=== PATIENT | male | born 1985 | race Caucasian/White ===

== ENCOUNTER → 2020-01-12 10:25 | Outpatient (BNVA) | payer SELFPAY | PROVIDERS: Visit Provider Nurse Practitioner Family | DX: Z11.59 Encounter for screening for other viral diseases (principal); Z20.828 Contact with and (suspected) exposure to other viral communicable diseases | CPT/HCPCS: 87635 ==

== ENCOUNTER 2020-06-17 10:14 | Outpatient (CLI) | payer BC, SELFPAY ==
--- NOTE | 2020-06-17 10:32 | CT_ITS ---
WS: [id number] CT ABDOMEN AND PELVIS WITH CONTRAST HISTORY: LLQ PAIN TECHNIQUE: Imaging performed of the abdomen and pelvis with IV contrast. Single phase imaging of the abdomen. Coronal and sagittal reformats are submitted. All CT scans at [facility] use at least one of these dose optimization techniques: automated exposure control; mA and/or kV adjustment per patient size (includes targeted exams where dose is matched to clinical indication); or iterativ e reconstruction. IV CONTRAST: Omnipaque 300; 95 mL IV. Oral contrast: No DLP: 1096.57 mGycm COMPARISON: 09/27/2013 Lower thorax: Lung bases are clear. Heart is normal size. No hiatal hernia. Liver/biliary system: Normal size with no intrahepatic dilatation. Gallbladder: Normal. No gallstones or wall thickening. No pericholecystic fluid. Pancreas: Normal. Spleen: Normal. Adrenal glands: Normal. Right kidney: Normal. Left kidney: Normal. Aorta: Normal. Lymphadenopathy: None. Free fluid: There is a small amount of free fluid in the pelvis which is abnormal in a male patient. GI tract: Increase fluid in the small bowel. Mild collapse of the distal colon. No significant fecal retention in the colon. There is linear calcification in the RIGHT lower quadrant which extends to th e cecum. Favor this is probably an appendix with appendicoliths. Appendix with no calcification was n oted on a prior study of 09/27/2013 in a similar location. No acute inflammatory changes. Abdominal wall: Unremarkable abdominal wall. No hernia. Pelvis: Small amount of free fluid in the pelvis. Urinary bladder is nondistended. Small bilateral hy droceles. Bones: Unremarkable. CT/CT abdomen pelvis w con* [id number] IMPRESSION: 1. Small amount of free fluid in the pelvis is abnormal in a male patient. Akila ology of this fluid is not certain. 2. Mild fluid distention of small bowel but no obstructive pattern. May be due to enteritis. 3. Linear calcification the RIGHT lower quadrant is probably the appendix with extensive appendicoliths. No adjacent inflammation.
[2020-06-17] MEDS: iohexol 300 mg/mL 100 mL Btl IV (11:41)
== END 2020-06-17 10:15 | disposition home or self-care (01) ==
PROVIDERS: Visit Provider Nurse Practitioner Family
DX: R10.32 Left lower quadrant pain (principal)
CPT/HCPCS: 74177; Q9967

== ENCOUNTER 2020-06-18 05:49 | Observation (INO) | payer BC, SELFPAY ==
[2020-06-18] VITALS (16 sets, daily range): BP systolic 106–150; BP diastolic 65–87; PULSE 36–67; RESP 11–18; TEMP 36.2–36.8; O2SAT 95–100; BMI 23.6
--- NOTE | 2020-06-18 06:05 | W.ED.ABDPA2 ---
HPI - Abdominal Pain General: Chief Complaint: Abdominal Pain Stated Complaint: ab pain, constipation Time Seen by Provider: 06/18/20 05:52 History of Present Illness: HPI narrative: 34-year-old male presents emergency room complaining of abdominal pain the lower abdomen began primarily left lower quadrant has kind of migrated over to the right lower quadrant. It began approximately 4 days ago has been getting progressively worse. He has had problems with constipation in the past. He denies any previous abdominal surgeries denies any dysuria urgency or frequency. Denies any medication melena hematemesis or coffee-ground emesis. MD elicited complaint: abdominal pain Onset (ago): day(s) (4) Pain Consistency: constant Location: LLQ Severity: moderate Quality: cramping Migration to: RLQ Exacerbating factors: movement Relieving factors: rest Associated Symptoms: Reports anorexia, bloating and poor appetite; Denies belching, change in bowel habits, chills, coffee ground emesis, constipation, GI cramping, diarrhea, dyspepsia, dysuria, excessive flatus, fever(s), heartburn, hematochezia, hematuria, hematemesis, fecal incontinence, loose stools, melena, nausea, syncope and vomiting Review of Systems Const: Denies: fever(s) ENMT: Denies: throat pain, ear or mastoid pain, nasal discharge or nasal congestion Card: Denies: syncope Resp: Denies: dyspnea, productive cough or non-productive cough GI: Reports: bloating; Denies: nausea, vomiting, hematemesis, coffee ground emesis, heartburn, diarrhea, constipation, GI cramping, belching, excessive flatus, fecal incontinence, change in bowel habits, hematochezia or melena : Denies: dysuria or hematuria Skin/Breast: Denies: rash or pruritus PFS ED PFSH: Surgical History (Updated 06/18/20 @ 14:47 by Rancho Gray MD) S/P laparoscopic appendectomy (06/18/20) Family History Grandfather Hypertension Father Diabetes Denies family history of Dementia Social History Smoking and tobacco status: current every day smoker cigarettes Packs smoked per day: 1 Years cigarettes smoked: 1 Alcohol intake: never Current gender identity: Male Physical Exam Const: COMMON NORMALS: no acute distress GENERAL APPEARANCE: cooperative and comfortable ORIENTATION/CONSCIOUSNESS: Yes awake, Yes oriented to person, Yes oriented to place and Yes oriented to time HENMT: COMMON NORMALS: normocephalic, atraumatic and hearing grossly normal bilaterally HEAD & SCALP: normocephalic and atraumatic Neck/C-Spine: COMMON NORMALS: no JVD Resp: COMMON NORMALS: normal respiratory effort, No retractions, No use of accessory muscles and clear to auscultation bilaterally AUSCULTATION: clear to auscultation bilaterally Cardio: COMMON NORMALS: no JVD, regular rate, regular rhythm and No murmurs present (Cardio) RATE: regular rate RHYTHM: regular rhythm GI: COMMON NORMALS: No hepatosplenomegaly present AUSCULTATION: Yes normoactive bowel sounds PALPATION: Yes Tenderness to palpation present (GI) Details: LLQ and RLQ, No Guarding due to palpation present (GI) and Yes No hepatosplenomegaly present Extremity: COMMON NORMALS: normal to inspection, capillary refill normal, no clubbing, cyanosis or edema, no calf tenderness and no pedal edema Neuro: SENSORIUM/ORIENTATION: Yes oriented to person, Yes oriented to place and Yes oriented to time Skin: COMMON NORMALS: no rashes or lesions noted GENERAL SKIN EXAM: no rashes or lesions noted Course Vital Signs: Vital signs: Vital Signs Temperature 98.1 F 06/18/20 18:50 Pulse Rate 67 06/18/20 18:50 Respiratory Rate 18 06/18/20 18:50 Blood Pressure 125/78 06/18/20 18:50 Pulse Oximetry 98 06/18/20 18:50 MDM - Abdominal Pain MDM Narrative: Medical decision making narrative: Right lower quadrant pain with CT suspicious for appendicitis however patient has small amount of intraperitoneal fat and is difficult to be certain. We will go ahead and admit discussed with Dr. Gray he will evaluate patient. Lab Data: Labs: Lab Results 06/18/20 06/18/20 06/18/20 Range/Units 06:15 06:15 06:48 WBC 11.4 H (4.0-10.0) 10^3/ uL RBC 5.02 (4.1-5.3) 10^6/u L Hgb 15.0 (11.7-16.6) g/dL Hct 44.5 (42.0-52.0) % MCV 88.6 (80-94) fL MCH 29.9 (28.0-34.0) pg MCHC 33.7 (30.0-36.0) g/dL RDW 12.8 (12.1-15.1) % Plt Count 316 (130-400) 10^3/c mm MPV 10.1 (7.4-10.4) fL Neut % (Auto) 69.3 % Lymph % (Auto) 21.2 % [place] % (Auto) 8.0 % Eos % (Auto) 0.9 % Baso % (Auto) 0.3 % Neut # (Auto) 7.93 H (1.8-7.7) 10^3/u L Lymph # (Auto) 2.4 (0.8-4.8) 10^3/u L [place] # (Auto) 0.9 (0.2-0.9) 10^3/u L Eos # (Auto) 0.1 (0.0-0.8) 10^3/u L Baso # (Auto) 0.0 (0.0-0.1) 10^3/u L Nucleated RBC % (a uto) 0 % Nucleated RBCs # 0.0 /100WBC Sodium 138 (136-145) mmol/L Potassium 3.8 (3.5-5.1) mmol/L Chloride 100 (98-107) mmol/L Carbon Dioxide 30 H (22-29) mmol/L Anion Gap 11.8 (5-19) BUN 6 (6-20) mg/dL Creatinine 0.9 (0.7-1.2) mg/dL GFR Calculation 97.2 (90-130) mL/min Glucose 93 (65-115) mg/dL Calculated Osmolal ity 283 L (285-295) mOsm/k g Calcium 8.9 (8.5-10.5) mg/dL Total Bilirubin 0.6 (0.15-1.2) mg/dL AST 12 (0-40) U/L ALT 17 (0-41) U/L Alkaline Phosphata se 53 (40-130) IU/L Total Protein 6.2 L (6.6-8.7) g/dL Albumin 4.3 (3.5-5.2) g/dL Globulin 1.9 (1.3-4.6) g/dL Lipase 13 (13-60) U/L Urine Color Yellow (Yellow) Urine Appearance Clear (CLEAR) Urine pH 6.5 (5-7) Ur Specific Gravit y 1.020 (1.005-1.030) Urine Protein Neg (Negative) Urine Glucose (UA) Norm (Normal) Urine Ketones Negative (Negative) Urine Blood Neg (Negative) Urine Nitrate Negative (Negative) Urine Bilirubin Neg (Negative) Urine Urobilinogen Norm (Negative) mg/dL Ur Leukocyte [place]olande ase Negative (Negative) Discharge Plan Discharge Patient Disposition: Admitted As Inpatient Admit Provider: Rancho Gray Clinical Impression: Acute appendicitis Condition: Stable Discharge Diet: Advance as tolerated Coding Level of Care Code ED Scientific Informatics Project Leader for [facility] Exam Comprehensive
--- NOTE | 2020-06-18 06:32 | CT_ITS ---
WS: [id number] CT ABDOMEN AND PELVIS WITH CONTRAST HISTORY: abd pain TECHNIQUE: Imaging performed of the abdomen and pelvis with IV contrast. Single phase imaging of the abdomen. Coronal and sagittal reformats are submitted. All CT scans at [facility] use at least one of these dose optimization techniques: automated exposure control; mA and/or kV adjustment per patient size (includes targeted exams where dose is matched to clinical indication); or iterativ e reconstruction. IV CONTRAST: Omnipaque 300; 95 mL IV. Oral contrast: No DLP: 1007.23 mGy.cm COMPARISON: 06/17/2020 and 09/27/2013 Lower thorax: Lung bases are clear. Heart is normal size. No hiatal hernia. Liver/biliary system: Normal size with no intrahepatic dilatation. Gallbladder: Normal. No gallstones or wall thickening. No pericholecystic fluid. Pancreas: Normal. Spleen: Normal. Adrenal glands: Normal. Right kidney: Normal. Left kidney: Normal. Aorta: Normal. Lymphadenopathy: None. Free fluid: Moderate amount of free fluid in the pelvis. This fluid has increased in amount since the study the prior day. This is an abnormal finding. GI tract: Mild fluid distention of the small bowel. Again noted are the high density foci in the RIGH T lower quadrant associated with the cecum or appendix. There is a small amount of increased fluid no w at the site. These may be phleboliths or medicinal material. Appendix has increased in diameter, no w measuring 8 mm. Overall the configuration of these densities has changed. They are less linear on t mary's study. Abdominal wall: Unremarkable abdominal wall. No hernia. Pelvis: Moderate amount of free fluid. There is also fluid surrounding the testicles. Bones: Unremarkable. CT/CT abdomen pelvis w con* [id number] IMPRESSION: 1. Increasing amount of free fluid in the pelvis is normal. Favor this is rela toshia to acute appendicitis as there is increasing fluid and distention of the ap pendix. There is continued small bowel fluid distention. 2. Numerous abnormal densities in the RIGHT lower quadrant. These may be appen dicoliths associated with appendicitis or medicinal material. These densities h ave changed in configuration since the prior study therefore these do appear mo bile. . Notified Nakul Urena DO at 06/18/2020 8:12 AM.
[2020-06-18] MEDS: ondansetron 2 mg/ML SDV 2 mL 4 MG IVP (06:36)
[2020-06-18 06:43] LABS: Basophils % 0.3 %; Eosinophils # 0.1 10^3/uL (0.0-0.8); Eosinophils % 0.9 %; Hematocrit 44.5 % (42.0-52.0); Lymphocytes # 2.4 10^3/uL (0.8-4.8); Lymphocytes % 21.2 %; Mean Corpuscular HGB Conc 33.7 g/dL (30.0-36.0); Mean Corpuscular Hemoglobin 29.9 pg (28.0-34.0); Mean Corpuscular Volume 88.6 fL (80-94); Mean Platelet Volume 10.1 fL (7.4-10.4); Monocytes # 0.9 10^3/uL (0.2-0.9); Neutrophils # 7.93 10^3/uL (1.8-7.7); Neutrophils % 69.3 %; Nucleated Red Blood Cells % 0 %; Platelet Count 316 10^3/cmm (130-400); Red Blood Count 5.02 10^6/uL (4.1-5.3); Red Cell Distribution Width 12.8 % (12.1-15.1); White Blood Count 11.4 10^3/uL (4.0-10.0)
[2020-06-18 06:55] LABS: Alanine Aminotransferase 17 U/L (0-41); Albumin Level 4.3 g/dL (3.5-5.2); Alkaline Phosphatase 53 IU/L (40-130); Anion Gap 11.8 (5-19); Aspartate Amino Transferase 12 U/L (0-40); Blood Urea Nitrogen 6 mg/dL (6-20); Calcium 8.9 mg/dL (8.5-10.5); Carbon Dioxide 30 mmol/L (22-29); Chloride 100 mmol/L (98-107); Globulin 1.9 g/dL (1.3-4.6); Glomerular Filtration Rate 97.2 mL/min (90-130); Glucose 93 mg/dL (65-115); Lipase 13 U/L (13-60); Osmolality Calculated 283 mOsm/kg (285-295); Potassium 3.8 mmol/L (3.5-5.1); Sodium 138 mmol/L (136-145); Total Bilirubin 0.6 mg/dL (0.15-1.2); Total Protein 6.2 g/dL (6.6-8.7)
[2020-06-18 07:02] LABS: Add Urine Microscopic? NO; Charge for UA Resulting for Rev
[2020-06-18 07:05] LABS: Bilirubin Urine Neg (Negative); Blood Urine Neg (Negative); Glucose Urine UA Norm (Normal); Ketones Urine Negative (Negative); Leukocyte Esterase Urine Negative (Negative); Nitrate Urine Negative (Negative); Protein Urine Neg (Negative); Urine Appearance Clear (CLEAR); Urine Color Yellow (Yellow); Urobilinogen Urine Norm (Negative); pH Urine 6.5 (5-7)
[2020-06-18] MEDS: sodium chloride 0.9% 1,000 ML 999 ML IV ×2 (07:40→10:31)
[2020-06-18 09:18] LABS: Lactic Sepsis W/Reflex 1.4 mmol/L (0.5-2.2)
[2020-06-18] MEDS: morphine 4 mg/mL SDV 1 mL IVP (09:29)
--- NOTE | 2020-06-18 09:35 | PC.NURSE ---
Admitting nurse can not take report due to rounding at this time.
--- NOTE | 2020-06-18 12:01 | PC.NURSE ---
Patient to surgery at this time. Patient is A&Ox3. Respirations even and non-labored on room air.
--- NOTE | 2020-06-18 13:19 | PM.HP ---
Providers/Chief Complaint Admitting Physician: Rancho Gray MD Chief Complaint: ab pain, constipation History of Present Illness Ayo Antony is a 34 year old male who presented to the ER yesterday as well as today with complaints of abdominal pain over the last 4 to 5 days. Patient states that he has not had a bowel movement for 6 days. Patient denies any fevers but has some chills. No nausea, vomiting. Denies any diarrhea. He quit smoking about a week ago. He has no pertinent medical or surgical history. Review of Systems General: Reports: 10 or more systems reviewed and unremarkable except in HPI and below Medications/Allergies Home Medications Medication Instructions Recorded Confirmed Last Taken Type No Known Home Medications 01/12/20 06/18/20 Unknown History Allergies Allergy/AdvReac Type Severity Reaction Status Date / Time No Known Allergies Allergy Verified 01/12/20 10:03 PFSH Acute PFSH: Family History Grandfather Hypertension Father Diabetes Denies family history of Dementia Social History Smoking and tobacco status: current every day smoker cigarettes Packs smoked per day: 1 Years cigarettes smoked: 1 Alcohol intake: never Current gender identity: Male Vitals/I&O/Wt Last Vital Signs Temp 97.4 F L 06/18/20 12:41 Pulse 40 L 06/18/20 12:41 Resp 16 06/18/20 12:41 BP 111/74 06/18/20 12:41 Pulse Ox 99 06/18/20 12:41 06/17/20 06/18/20 06/18/20 22:59 06:59 14:59 Intake Total 1000 / 1000 Balance 1000 / 1000 Weight last 48 hrs Weight 160 lb Physical Exam Narrative: EXAM NARRATIVE: HEENT: Normocephalic Eye: Sclera /conjunctiva normal Respiratory and chest: Bilateral clear breath sounds on auscultation Cardiovascular: Normal S1 and S2 heart sounds Abdomen: Soft to palpation, tender right lower quadrant on palpation Neurological: Oriented to place person and time Skin: Intact, no lesions appreciated on gross exam Data : 06/18/20 06:15 06/18/20 06:15 A&P Assessment and plan (1) Right lower quadrant pain: 34-year-old male who is been dealing with worsening right lower quadrant pain, chills for the last 5 days. Patient was seen in the emergency room yesterday and a CT scan yesterday had shown minimal amount of free fluid which is increased today and the radiologist leaning towards acute appendicitis. Patient is tender in the right lower quadrant on palpation, his white count is 11.4. Discussed potential diagnosis with the patient Plan for laparoscopic possible open appendectomy Procedure, risks, benefits and alternatives have been discussed with the patient who wishes to proceed with surgery. Status: Acute Attestations Medical Necessity Statement*: Right lower quadrant pain for laparoscopic possible open appendectomy Coding Level of Care Code Acute Manager Client Service for [facility] Diagnoses Right lower quadrant pain R10.31
--- NOTE | 2020-06-18 13:54 | ANES.PREANE2 ---
Pre-Anesthetic Assessment Pre-Anesthetic Assessment: Height/Weight: Height 1.75 m Weight 72.575 kg Temp Pulse Resp BP Pulse Ox 97.4 F L 40 L 16 111/74 99 06/18/20 12:41 06/18/20 12:41 06/18/20 12:41 06/18/20 12:41 06/18/20 12:41 Preop Diagnosis: acute appendicitis Proposed Procedure: Operation Date: 06/18/20 11:30 Proposed Procedures p Laparoscopic Appendectomy(Not Applicable) - Rancho Gray MD Was Beta Michelle taken within 24 hours: N/A Was Clonidine taken within 24 hours: N/A Last intake: Intake Last Liquid Date 06/18/20 Last Liquid Time 06:00 Last Solid Date 06/17/20 Last Solid Time 21:00 Social: Social History: Tobacco and No alcohol Exam: Pre-Anes Outpt Exam: alert, oriented x 3, clear to auscultation bilaterally and regular rate & rhythm Airway: Submandibular: WNL Cervical ROM: WNL MP: 2 Dentition: Full Pulmonary: Pulmonary: COPD Anesthetic Plan: ASA status: 2 Anesthesia: General Other: Mod RSI Risk of > 500 ml blood loss (7ml/kg in children): No PFSH Anesthesia PFSH: Family History Grandfather Hypertension Father Diabetes Denies family history of Dementia Social History Smoking and tobacco status: current every day smoker cigarettes Packs smoked per day: 1 Years cigarettes smoked: 1 Alcohol intake: never Current gender identity: Male Data Anesthesia CBC & Chem 7: 06/18/20 06:15 06/18/20 06:15 Other Labs: Laboratory Results - last 48 hr 06/18/20 06/18/20 06/18/20 06:15 06:15 06:48 WBC 11.4 H RBC 5.02 Hgb 15.0 Hct 44.5 MCV 88.6 MCH 29.9 MCHC 33.7 RDW 12.8 Plt Count 316 MPV 10.1 Neut % (Auto) 69.3 Lymph % (Auto) 21.2 [place] % (Auto) 8.0 Eos % (Auto) 0.9 Baso % (Auto) 0.3 Neut # (Auto) 7.93 H Lymph # (Auto) 2.4 [place] # (Auto) 0.9 Eos # (Auto) 0.1 Baso # (Auto) 0.0 Nucleated RBC % (auto) 0 Nucleated RBCs # 0.0 Sodium 138 Potassium 3.8 Chloride 100 Carbon Dioxide 30 H Anion Gap 11.8 BUN 6 Creatinine 0.9 GFR Calculation 97.2 Glucose 93 Calculated Osmolality 283 L Lactic Acid Calcium 8.9 Total Bilirubin 0.6 AST 12 ALT 17 Alkaline Phosphatase 53 Total Protein 6.2 L Albumin 4.3 Globulin 1.9 Lipase 13 Urine Color Yellow Urine Appearance Clear Urine pH 6.5 Ur Specific [place] 1.020 Urine Protein Neg Urine Glucose (UA) Norm Urine Ketones Negative Urine Blood Neg Urine Nitrate Negative Urine Bilirubin Neg Urine Urobilinogen Norm Ur Leukocyte Esterase Negative 06/18/20 08:53 WBC RBC Hgb Hct MCV MCH MCHC RDW Plt Count MPV Neut % (Auto) Lymph % (Auto) [place] % (Auto) Eos % (Auto) Baso % (Auto) Neut # (Auto) Lymph # (Auto) [place] # (Auto) Eos # (Auto) Baso # (Auto) Nucleated RBC % (auto) Nucleated RBCs # Sodium Potassium Chloride Carbon Dioxide Anion Gap BUN Creatinine GFR Calculation Glucose Calculated Osmolality Lactic Acid 1.4 Calcium Total Bilirubin AST ALT Alkaline Phosphatase Total Protein Albumin Globulin Lipase Urine Color Urine Appearance Urine pH Ur Specific [place] Urine Protein Urine Glucose (UA) Urine Ketones Urine Blood Urine Nitrate Urine Bilirubin Urine Urobilinogen Ur Leukocyte Esterase Cardiac Studies: No Data to Display
[2020-06-18] MEDS: piperacillin-tazobactam 3.375 GM in sodium chloride 0.9% (plus) 50 ML IV (14:27)
--- NOTE | 2020-06-18 14:47 | PM.OP ---
Operative Report Date of procedure: June 18, 2020 Pre-op Diagnosis: Acute appendicitis Post-op Diagnosis: 1. Mild inflamed appendix 2. Normal small bowel, air filled transverse colon, rest of the colon appeared normal Procedure Done: Laparoscopic appendectomy Specimens removed/disposition: Appendix Surgeon: Rancho Gray Anesthesia: General Condition: stable Disposition: PACU Procedure: The patient was taken to the Operating Room and intubated under general anesthesia after antibiotic had been administered. Using a 15 blade, a 1-cm infraumbilical incision was made and using open Mehul technique, the peritoneal cavity was entered. A 12mm port with balloon was placed and 14 mm of pneumoperitoneum was created and 10-mm 30 degree scope was introduced. Two separate 5mm ports were placed in the left and right lower quadrant under direct visualization. The appendix was noted in the right lower quadrant and appeared distended and mildly inflamed. The small bowel is examined from the ileocecal valve to the ligament of Treitz and there were no abnormalities noted. There is free fluid in the pelvis which was suctioned out. The colon appeared normal except for the transverse colon which was distended with air. Using [place] forceps, an opening was made in the mesoappendix near the base of the appendix. An Endo SHAHID stapler 45mm long 3.5mm blue load was introduced to divide the appendix at it's base. There was an arterial bleeding along the staple line which was controlled with cautery. Using electrocautery, the mesoappendix including the appendicular artery was divided. There was no bleeding noted and the staple line appeared intact. The right lower quadrant was irrigated with saline and an EndoCatch bag was introduced to remove the appendix. All three ports were removed under direct visualization and there was no bleeding noted on the port sites. 10cc of 0.5% Marcaine was infiltrated at the port sites. The fascia at the umbilical port was closed using figure of eight 0-Vicryl sutures and subcutaneous tissue was approximated using 3-0 Vicryl and skin at all 3 port sites was closed using 4-0 Monocryl and Dermabond.
--- NOTE | 2020-06-18 14:56 | P.DS_ITS ---
Discharge Providers Date of Admission: 06/18/20 08:38 Date of Discharge: June 18, 2020 Attending Provider at Admission: Rancho Gray MD Attending Provider at Discharge: Rancho Gray MD Diagnoses at Discharge Discharge Diagnosis (1) Right lower quadrant pain: Status: Resolved Reason for Visit Reason for Visit: ab pain, constipation Hospital Course Hospital Course This is a 34-year-old male who presented to the ER on 06/17/2020 and 06/18/2020 with complaints of abdominal pain and constipation. Patient had a CT abdomen pelvis on both days which showed a distended appendix with increase in free fluid and a white count of 11 K. Patient underwent laparoscopic appendectomy. At time of discharge vital signs are stable, he is tolerating a liquid diet and his pain is well controlled with oral pain medications. Discharge Data Data Completed and Pending: Completed Studies During Hospitalization Category Date Time Status CT abdomen pelvis w con* [id number] Stat Cat Scan 06/18/20 06:32 Completed Pending at discharge Category Date Time Status ES surgery / GI i mages Routine Exams 06/18/20 13:31 Taken Pathology: Surgic al [PTH] Routine Pth 06/18/20 14:47 Ordered Labs from last 24 hours 06/18/20 06/18/20 06/18/20 08:53 06:48 06:15 WBC RBC Hgb Hct MCV MCH MCHC RDW Plt Count MPV Neut % (Auto) Lymph % (Auto) [place] % (Auto) Eos % (Auto) Baso % (Auto) Neut # (Auto) Lymph # (Auto) [place] # (Auto) Eos # (Auto) Baso # (Auto) Nucleated RBC % (a uto) Nucleated RBCs # Sodium 138 Potassium 3.8 Chloride 100 Carbon Dioxide 30 H Anion Gap 11.8 BUN 6 Creatinine 0.9 GFR Calculation 97.2 Glucose 93 Calculated Osmolal ity 283 L Lactic Acid 1.4 Calcium 8.9 Total Bilirubin 0.6 AST 12 ALT 17 Alkaline Phosphata se 53 Total Protein 6.2 L Albumin 4.3 Globulin 1.9 Lipase 13 Urine Color Yellow Urine Appearance Clear Urine pH 6.5 Ur Specific Gravit y 1.020 Urine Protein Neg Urine Glucose (UA) Norm Urine Ketones Negative Urine Blood Neg Urine Nitrate Negative Urine Bilirubin Neg Urine Urobilinogen Norm Ur Leukocyte Yolande ase Negative 06/18/20 06:15 WBC 11.4 H RBC 5.02 Hgb 15.0 Hct 44.5 MCV 88.6 MCH 29.9 MCHC 33.7 RDW 12.8 Plt Count 316 MPV 10.1 Neut % (Auto) 69.3 Lymph % (Auto) 21.2 [place] % (Auto) 8.0 Eos % (Auto) 0.9 Baso % (Auto) 0.3 Neut # (Auto) 7.93 H Lymph # (Auto) 2.4 [place] # (Auto) 0.9 Eos # (Auto) 0.1 Baso # (Auto) 0.0 Nucleated RBC % (a uto) 0 Nucleated RBCs # 0.0 Sodium Potassium Chloride Carbon Dioxide Anion Gap BUN Creatinine GFR Calculation Glucose Calculated Osmolal ity Lactic Acid Calcium Total Bilirubin AST ALT Alkaline Phosphata se Total Protein Albumin Globulin Lipase Urine Color Urine Appearance Urine pH Ur Specific Gravit y Urine Protein Urine Glucose (UA) Urine Ketones Urine Blood Urine Nitrate Urine Bilirubin Urine Urobilinogen Ur Leukocyte Yolande ase Vitals: Last Vital Signs Temp 97.2 F L 06/18/20 14:43 Pulse 45 L 06/18/20 14:50 Resp 11 L 06/18/20 14:50 BP 137/69 06/18/20 14:50 Pulse Ox 98 06/18/20 14:50 Discharge Plan Discharge Patient Disposition: Home Condition: Stable Prescriptions: New hydrocodone-acetaminophen 5-325 mg tablet 1 tab PO Q6H PRN (Reason: pain) Qty: 20 RF: 0 Zofran 4 mg tablet 4 mg PO Q6H PRN (Reason: nausea and vomiting) Qty: 20 RF: 0 lactulose 10 gram/15 mL solution 15 ml PO BID Qty: 237 RF: 2 Discharge Orders: Discharge Order (Routine); Ordered 06/18/20 Ordered By: Rancho Gary Referrals: Rancho Gray MD [Physician] - 07/02/20 2:35 pm Discharge Diet: Advance as tolerated Patient Instructions: Hydrocodone/Acetaminophen (By mouth), Lactulose (By mouth), Ondansetron (By mouth), Laparoscopic Appendectomy (DC), Opioid Safety Activity Restrictions/Additional Instructions: Diet Advance to normal diet as tolerated, increase fluid intake as much as possible. Activity Avoid strenuous activity for 2 weeks but continue with daily activities including walking as tolerated. Do not lift more than 10 pounds for 2 weeks Return to work/school You can return to work/ school whenever you feel ready as long as you don?t have to lift more than 10 pounds at work. If you have paperwork that needs to be completed for time off from work, please contact my office Driving You can resume driving once you stop using narcotic pain medications, and transition to non-opioid pain medications like Tylenol, Motrin, Aleve, etc. Medications Pain Take opioid pain medications as prescribed and transition to non-opioid pain medications like Tylenol, Motrin, Aleve etc. over the next few days. The goal of the pain medications is to make the pain bearable and not to be pain free since you recently had surgery. Resume all home medications after surgery as per the medication reconciliation list Nausea Nausea is common after surgery, take nausea medications as needed and stay on a liquid bland diet until nausea resolves. Constipation The combination of surgery, anesthesia and pain medications can result in constipation. Take lactulose as prescribed. If you do not have a bowel movement in 3 days, please take an [id number] stronger laxative like MiraLAX to address the constipation. Shower It is ok to shower but avoid getting the wound wet for 48 hours after surgery. Do not soak in bathtub, swimming pool or hot tub for 2 weeks. Wound care The glue applied to the incision will peel slowly over the next two weeks. The stitches used are dissolvable and will not need to be removed. Do not apply antibiotics or other medications on the incision Problems with the wound You can develop some redness around the incision from bruising after surgery. If there is increasing pain, redness, tenderness around the incision with or without drainage, please contact my office to rule out an infection. Sometimes the skin at the incisions can separate, resulting in reopening of the wound. Cover the wound with antibiotic cream and sterile dressings and contact my office. Contact physician Call the office at [phone] during office hours or go the Emergency Room after hours for - ?Fever to 100.4 or greater ?Shaking chills ?Pain that increases over time ?Redness, warmth, or pus draining from incision sites ?Persistent nausea or inability to take in liquids Discharge Attestations Time Spent in Discharge Care*: less than 30 min Quality Metrics Clinical Quality Measures During this hospital stay, did patient experience: None Coding Level of Care Code Acute [facility] note Diagnoses Right lower quadrant pain R10.31
[2020-06-18] MEDS: lactated ringers 1,000 ML 100 ML IV (16:13)
--- NOTE | 2020-06-18 16:44 | PC.NURSE ---
Patient has walked a lap and tolerated it well. Patient rates his pain a 3/10. Patient has eaten jello and drank a Sprite and denies any nausea.
--- NOTE | 2020-06-18 17:12 | ANE.PACU2 ---
Inpatient post-anesthesia follow up: Airway intact: Yes Vital signs: Temperature 97.4 F Pulse Rate [Monito r] 42 Pulse Rate 67 Respiratory Rate 18 Blood Pressure [Le ft Arm] 132/87 Blood Pressure 125/78 Pulse Oximetry 98 Oxygen Delivery Me thod Room Air Oxygen Flow Rate Fraction of Inspir ed Oxygen Hydration adequate: Yes Nausea and vomiting: No Pain level: 2 Mental status: Baseline
--- NOTE | 2020-06-18 18:32 | PC.NURSE ---
Dr. Gray at bedside.
--- NOTE | 2020-06-18 18:40 | PC.NURSE ---
Reviewed discharge with patient at this time. Patient verbalized understanding. IV removed. Patient tolerated well. Patient is A&Ox3. Respirations even and non-labored on room air. Patient ambulated to his private car without difficulty.
--- NOTE | 2020-06-21 16:34 | PC.RESP ---
Smoking Cessation information sent to patient.
== END 2020-06-18 18:40 | disposition home or self-care (01) ==
LOC: ER 05:55 → MEDSURG 09:28
PROVIDERS: Admitting Provider Surgery; Emergency Provider Family Medicine; Visit Provider Surgery
PROC: 0DTJ4ZZ Resection of Appendix, Percutaneous Endoscopic Approach (ICD-10-PCS; CPT 44970; principal; 2020-06-18 11:30)
DX: K35.80 Unspecified acute appendicitis (principal); F17.210 Nicotine dependence, cigarettes, uncomplicated; Z82.49 Family history of ischemic heart disease and other diseases of the circulatory system
CPT/HCPCS: 44970; 74177; 80053; 81003; 83605; 83690; 85025; 88304; 96365; 96367; 96375; 99285; G0378; J2270; J2405; J2543; J2704; J2710; J3010; J3490; J7030; Q9967

== ENCOUNTER → 2020-11-25 09:45 | Outpatient (BNVA) | payer BC, SELFPAY | PROVIDERS: PCP Family Medicine Adult Medicine; Visit Provider Nurse Practitioner Family | DX: Z20.822 Contact with and (suspected) exposure to COVID-19 (principal) | CPT/HCPCS: 87426; 87635 ==